=== PATIENT | male | born 1990 | race Caucasian/White ===

== ENCOUNTER 2020-03-11 18:27 | Emergency (ER) | payer OTHER, SELFPAY ==
[2020-03-11 18:35] VITALS: BP 122/79; PULSE 104; RESP 16; TEMP 36.1; O2SAT 98
--- NOTE | 2020-03-11 18:44 | ED.GENADULT ---
HPI - General Adult General Chief complaint: Nausea/Vomiting/Diarrhea Stated complaint: over heated Time Seen by Provider: 03/11/20 18:44 History of Present Illness HPI narrative: 29-year-old male patient was brought in by the family with chief complaints of very hot all day today. 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 He states that he got home around 3:00 a.m. and felt very weak and had muscle cramps. At 4:00 a.m. he started vomiting and being very nauseated. He has not been able to keep any food down. He denies any diarrhea. He denies any passing-out spells. He denies any chest pain or shortness of breath. He denies any sore throat or cough. He denies any exposures to illness or anyone with known COVID 19 problems. The patient is a smoker and uses marijuana occasionally. He denies any alcohol or recreational drugs. He states that he is in good health generally Related Data Home Medications Medication Instructions Recorded Confirmed No Home Medications 03/11/20 03/11/20 Allergies Allergy/AdvReac Type Severity Reaction Status Date / Time No Known Allergies Allergy Verified 03/11/20 18:47 Review of Systems Review of Systems: All systems reviewed & are unremarkable except as noted in HPI and below Constitutional: Constitutional: Reports no additional constitutional complaints, Denies chills, Reports fatigue, Denies fever(s) and Reports weakness Eyes: Eyes: Reports no additional eye complaints ENT: Denies sore throat Cardiovascular: Cardiovascular: Reports no additional cardiovascular complaints, Denies chest pain and Reports rapid heart rate Respiratory: Respiratory: Reports no additional respiratory complaints, Denies chest congestion, Denies cough, Denies dyspnea and Denies wheezing Gastrointestinal: Gastrointestinal: Denies abdominal pain, Denies diarrhea, Reports nausea and Reports vomiting Genitourinary: Genitourinary: Reports no additional male genitourinary complaints Musculoskeletal: Musculoskeletal: Reports as per HPI, Denies back pain, Denies myalgias, Denies arthralgias, Denies joint swelling and Reports muscle cramps Integumentary/Breasts: Skin/Breast: Reports system reviewed and no additional complaints, except as docu Neurologic: Reports system reviewed and no additional complaints, except as documented, Denies dizziness, Denies syncope, Denies headache(s), Denies focal weakness, Denies numbness and Reports weakness Psychiatric: Psychiatric: Reports no additional psychiatric complaints PMFSH Past Medical History Medical History (Updated 03/11/20 @ 21:52 by Giselle Contreras MD) No pertinent past medical history Surgical History Surgical History (Updated 03/11/20 @ 18:55 by Giselle Contreras MD) No pertinent past surgical history Social History Social History (Updated 03/11/20 @ 18:56 by Giselle Contreras MD) Smoking packs per day: 1 Smoking cigarettes per day: 20.0 Smoking status: Current every day smoker Substance use type: does not use Living arrangements: with family Exam Const: General: alert, diaphoretic and ill appearing Nutritional Appearance: thin Limitations: no limitations HENMT: Head: normal to inspection Mouth: Yes moist mucous membranes Throat: posterior oropharynx normal Eyes: Conjunctivae: conjunctivae normal Pupils: Equal, round and reactive pupils present EOM: EOMs intact bilaterally Chest: Chest palpation & inspection: normal inspection of the chest Resp: Effort & Inspection: normal respiratory effort Auscultation: clear to auscultation bilaterally Cardio: Rate: tachycardic Rhythm: regular rhythm Heart sounds: no murmurs GI: GI Palp: Yes Soft to palpation, No Tenderness to palpation present (GI), No Guarding due to palpation present (GI) and No Rigid due to palpation Skin: General skin exam: normal color Rashes: no rashes Neuro: General: patient oriented x3 Speech: normal speech
[2020-03-11] MEDS: ONDANSETRON INJ 4 MG/2 ML VIAL IV PUSH (19:00)
[2020-03-11 19:03] LABS: Hematocrit 52.5 % (40.0-54.0); Hemoglobin 18.8 g/dL (14.0-18.0); Mean Corpuscular HGB Conc 35.8 g/dL (32.0-36.0); Mean Corpuscular Hemoglobin 31.5 pg (27.0-31.0); Mean Corpuscular Volume 87.9 fL (78.0-102.0); Mean Platelet Volume 10.1 fl (8.7-11.0); Platelet Count Result 366 K/mm3 (150-420); Red Blood Count 5.97 M/mm3 (4.70-6.10); Red Cell Distribution Width 12.5 % (11.6-14.4)
[2020-03-11 19:07] LABS: White Blood Count 25.4 K/mm3 (4.8-10.8)
[2020-03-11 19:13] LABS: Anion Gap 24.3 mmol/L (7-16); Blood Urea Nitrogen 38 mg/dL (7-18); Calcium 11.9 mg/dL (8.5-10.1); Carbon Dioxide 25 mmol/L (21-32); Chloride 90 mmol/L (98-108); Estimated Glomerular Filt Rate 21; Glucose 169 mg/dL (70-99); Magnesium 2.9 mg/dL (1.8-2.4); Osmolality Calculated 293 mOsm/kg (285-295); Potassium 4.3 mmol/L (3.5-5.1); Sodium 135 mmol/L (136-145)
[2020-03-11] MEDS: SODIUM CHLORIDE 0.9% IV 1,000 ML 999 ML IV CONT ×2 (19:28→20:00)
[2020-03-11 19:36] LABS: Band Neutrophils Percent 0 % (0-6); Eosinophils Absolute Manual 0.25 K/mm3 (0.02-0.5); Eosinophils Percent Manual 1 % (1-6); Lymphocytes Percent Manual 13 % (18-44); Monocytes Absolute Manual 1.27 K/mm3 (0.1-0.90); Monocytes Percent Manual 5 % (3-9); Neutrophils Absolute Manual 20.57 K/mm3 (1.3-6.7); Neutrophils Percent Manual 81 % (46-73); Platelet Estimate Adequate (Adequate); Total Cells Counted 100
[2020-03-11 21:30] LABS: Anion Gap 15.1 mmol/L (7-16); Blood Urea Nitrogen 36 mg/dL (7-18); Calcium 8.5 mg/dL (8.5-10.1); Carbon Dioxide 24 mmol/L (21-32); Chloride 103 mmol/L (98-108); Estimated CRCL calculation 31 ml/min; Estimated Glomerular Filt Rate 29; Glucose 100 mg/dL (70-99); Osmolality Calculated 294 mOsm/kg (285-295); Potassium 4.1 mmol/L (3.5-5.1); Sodium 138 mmol/L (136-145)
[2020-03-11 21:30] LABS: Add Urine Microscopic? YES; Appearance Urine Clear (Clear); Bilirubin Urine Negative (Negative); Blood Urine 2+ (Negative); Color Urine Yellow (Yellow); Glucose Urine UA Negative (Negative); Ketones Urine 1+ (Negative); Leukocyte Esterase Ur Negative (Negative); Nitrate Urine Negative (Negative); Protein Urine 2+ (Negative); Specific Grav Ur 1.025 (1.010-1.020); Urobilinogen Urine 0.2 mg/dL (0.2-1.0); pH Urine 5.5 (5.0-8.0)
[2020-03-11 21:37] LABS: Squamous Epithelial Cell Urine Few /hpf (Few); WBC Urine 0-3 /hpf (0-3)
[2020-03-11 21:38] LABS: Bacteria Urine Trace /hpf; Calcium Oxalate Crystals Urine Present /hpf; Mucus Urine Moderate /lpf
== END 2020-03-11 22:16 | disposition home or self-care (01) ==
PROVIDERS: Emergency Provider Emergency Medicine
DX: T67.5XXA Heat exhaustion, unspecified, initial encounter (principal); E86.0 Dehydration; N28.9 Disorder of kidney and ureter, unspecified
CPT/HCPCS: 36415; 80048; 81001; 83735; 85025; 96361; 96374; 99282; 99284; J2405; J7030

== ENCOUNTER 2020-04-08 06:53 | Emergency (ER) | payer OTHER, SELFPAY ==
--- NOTE | ~2020-04-08 | CT_ITS ---
EXAMINATION: CT abdomen pelvis wo con DATE: 04/08/2020 09:22 INDICATION: Nausea and vomiting. Leukocytosis. Generalized abdominal pain. TECHNIQUE: Computed tomography (CT) of the abdomen and pelvis was performed without intravenous contr ast. Automated exposure control and iterative reconstruction technique were employed. The dose-length product was 173.97 mGy-cm. COMPARISON: None. FINDINGS: The visualized portions of the lung bases are clear without pneumonia or pleural effusion. The heart size is normal. No pericardial effusion. The liver, gallbladder, spleen, pancreas, adrenal glands, and kidneys are normal. There is no urolithiasis. There are no dilated loops of bowel. The ap pendix measures 8 mm in diameter and contains appendicoliths. There are no pathologically enlarged ly mph nodes. There is no free intraperitoneal fluid. There is levocurvature of lumbar spine. IMPRESSION: 1. Appendicoliths and appendiceal diameter of 8 mm, but no inflammation to suggest appendicitis. Vanessa elate with physical exam. Reviewed, dictated and finalized at location B. IMPRESSION: 1. Appendicoliths and appendiceal diameter of 8 mm, but no inflammation to sugg est appendicitis. Correlate with physical exam.
--- NOTE | ~2020-04-08 | XR_ITS ---
EXAMINATION: XR chest 1V portable DATE: 04/08/2020 08:24 INDICATION: Shortness of breath. Leukocytosis. TECHNIQUE: A single frontal view of the chest was obtained on 2 radiographs. COMPARISON: None. FINDINGS: A calcified left lung nodule is consistent with old granulomatous disease. No pleural effus ion or pneumothorax. The heart size is normal. IMPRESSION: 1. No acute cardiopulmonary disease. Reviewed, dictated and finalized at location B.
[2020-04-08 07:05] VITALS: BP 115/84; PULSE 110; RESP 20; TEMP 37.4; O2SAT 98
[2020-04-08] MEDS: ONDANSETRON INJ 4 MG/2 ML VIAL IV PUSH (07:19)
[2020-04-08] MEDS: SODIUM CHLORIDE 0.9% IV 1,000 ML 999 ML IV CONT (07:19)
[2020-04-08] MEDS: SODIUM CHLORIDE 0.9% IV 2,000 ML 999 ML IV CONT (07:51)
--- NOTE | 2020-04-08 08:06 | ED.NAVMDI ---
HPI - Nausea/Vomiting/Diarrhea General Chief complaint: Nausea/Vomiting/Diarrhea Stated complaint: overheated yesterday Time Seen by Provider: 04/08/20 07:06 Source: patient Mode of arrival: ambulatory Limitations: no limitations History of Present Illness HPI Narrative: Pt presents to ED with complaints of vomiting and nausea. He states this started around noon yesterday, when he was working outside. He thinks he got overheated. He did this similar thing a few weeks ago. He came here and got rehydrated, but he states that he never got fully better. MD elicited complaint: nausea and vomiting Description of vomiting: bilious Description of diarrhea: watery Associated nausea: Yes Associated abdominal pain: No Exacerbating factors: none Relieving factors: other (marijuana) Associated symptoms: denies other symptoms (sore throat) Related Data Home Medications Medication Instructions Recorded Confirmed No Home Medications 03/11/20 04/08/20 Allergies Allergy/AdvReac Type Severity Reaction Status Date / Time No Known Allergies Allergy Verified 03/11/20 18:47 Review of Systems Review of Systems: All systems reviewed & are unremarkable except as noted in HPI and below Constitutional: Constitutional: Reports no additional constitutional complaints Eyes: Eyes: Reports no additional eye complaints ENT: Reports sore throat Cardiovascular: Cardiovascular: Reports no additional cardiovascular complaints Gastrointestinal: Gastrointestinal: Reports nausea and Reports vomiting Musculoskeletal: Musculoskeletal: Reports no additional musculoskeletal complaints Neurologic: Reports system reviewed and no additional complaints, except as documented Psychiatric: Psychiatric: Reports no additional psychiatric complaints Endocrine: Endocrine: Reports no additional endocrine complaints Hematologic/Lymphatic: Hematologic/Lymphatic: Reports no additional hematologic/lymphatic complaints Allergic/Immunologic: Allergic/Immunologic: Reports no additional allergic/immunologic complaints [facility] Past Medical History Medical History No pertinent past medical history Surgical History Surgical History No pertinent past surgical history Social History Social History (Updated 04/08/20 @ 08:35 by Saira Pryor MD) Smoking packs per day: 1 Smoking cigarettes per day: 20.0 Smoking status: Current every day smoker Substance use type: marijuana Other substance usage details: daily use Exam Const: General: no acute distress and alert Nutritional Appearance: thin Orientation/consciousness: patient oriented x3 HENMT: Head: normal to inspection Eyes: Pupils: Equal, round and reactive pupils present EOM: EOMs intact bilaterally Neck: Neck: normal visual inspection Chest: Chest palpation & inspection: normal inspection of the chest Resp: Effort & Inspection: normal respiratory effort Cardio: Rate: regular rate GI: GI Palp: Yes Soft to palpation, No Tenderness to palpation present (GI), No Guarding due to palpation present (GI) and No Rigid due to palpation Auscultation: normal bowel sounds : Testes: Testes normal Back/Spine/Pelvis: Back: no CVA tenderness Skin: General skin exam: normal color Neuro: General: patient oriented x3 Extrem: General: normal to inspection Psych: Appearance: grossly normal Mental Status: mental status grossly normal Thought content: Yes Normal thought content present Course Course Emergency Course: pt had elevated wbc count, and rf. It is worse and vomiting has been severe. Vital Signs Vital signs: Vital Signs Temperature 37.4 C 04/08/20 07:05 Pulse Rate 110 H 04/08/20 07:05 Respiratory Rate 20 04/08/20 07:05 Blood Pressure 115/84 04/08/20 07:05 Pulse Oximetry 98 04/08/20 07:05 Temperature 37.4 C 04/08/20 07:05 P
[2020-04-08 08:08] LABS: Hematocrit 47.5 % (40.0-54.0); Hemoglobin 16.8 g/dL (14.0-18.0); Mean Corpuscular HGB Conc 35.4 g/dL (32.0-36.0); Mean Corpuscular Hemoglobin 30.8 pg (27.0-31.0); Mean Corpuscular Volume 87.2 fL (78.0-102.0); Mean Platelet Volume 10.3 fl (8.7-11.0); Platelet Count Result 366 K/mm3 (150-420); Red Blood Count 5.45 M/mm3 (4.70-6.10); Red Cell Distribution Width 12.5 % (11.6-14.4); White Blood Count 26.7 K/mm3 (4.8-10.8)
[2020-04-08 08:11] LABS: Alanine Aminotransferase 68 U/L (16-63); Albumin Level 5.5 g/dL (3.4-5.0); Alkaline Phosphatase 99 U/L (46-116); Anion Gap 19 mmol/L (8-16); Aspartate Amino Transferase 44 U/L (15-37); Bilirubin,Total 0.9 mg/dL (0.00-1.00); Blood Urea Nitrogen 56 mg/dL (7-18); Calcium 9.1 mg/dL (8.5-10.1); Carbon Dioxide 24 mmol/L (21-32); Chloride 94 mmol/L (98-108); Estimated CRCL calculation 19 ml/min; Estimated Glomerular Filt Rate 16; Glucose 209 mg/dL (70-99); Osmolality Calculated 305 mOsm/kg (285-295); Potassium 4.1 mmol/L (3.5-5.1); Sodium 137 mmol/L (136-145); Total Protein 9.3 g/dL (6.4-8.2)
[2020-04-08 08:20] LABS: Band Neutrophils Percent 0 % (0-6); Basophils Percent Manual 0 % (0-1); Eosinophils Percent Manual 0 % (1-6); Lymphocytes Absolute Manual 1.86 K/mm3 (1.1-4.5); Lymphocytes Percent Manual 7 % (18-44); Monocytes Percent Manual 6 % (3-9); Neutrophils Absolute Manual 23.22 K/mm3 (1.3-6.7); Neutrophils Percent Manual 87 % (46-73); Total Cells Counted 100
[2020-04-08 08:21] LABS: Platelet Estimate Adequate (Adequate)
[2020-04-08 08:45] LABS: Lactic Acid 3.3 mmol/L (0.4-2.0)
[2020-04-08 08:50] LABS: Add Urine Microscopic? YES; Bilirubin Urine 1+ (Negative); Blood Urine 2+ (Negative); Color Urine Yellow (Yellow); Glucose Urine UA Negative (Negative); Ketones Urine 1+ (Negative); Leukocyte Esterase Ur Negative LEU/UL (Negative); Nitrate Urine Negative (Negative); Protein Urine 2+ (Negative); Specific Grav Ur >= 1.030 (1.010-1.020); Urobilinogen Urine 0.2 mg/dL (0.2-1.0)
[2020-04-08 08:55] LABS: Appearance Urine Sl Cloudy (Clear); Squamous Epithelial Cell Urine Few /hpf (Few); WBC Urine 0-3 /hpf (0-3)
[2020-04-08 08:56] LABS: Amorphous Sediment Urine Moderate; Bacteria Urine 1+ /hpf
[2020-04-08 08:59] LABS: Amphetamine Screen Urine Negative (Negative); Barbiturate Screen Urine Negative (Negative); Benzodiazepines Screen Urine Negative (Negative); Cannabinoid Screen Urine Positive (Negative); Cocaine Screen Urine Negative (Negative); Methadone Screen Urine Negative (Negative); Opiate Screen Urine Negative (Negative); Phencyclidine Screen Urine Negative (Negative)
[2020-04-08] MEDS: NICOTINE (*PBKC) 21 MG PATCH 1 PATCH (09:01)
[2020-04-08 09:26] LABS: Creatine Kinase 256 U/L (39-308)
[2020-04-08 12:04] VITALS: BP 138/77; PULSE 75; RESP 20; O2SAT 98
[2020-04-08] MEDS: SODIUM CHLORIDE 0.9% IV 1,000 ML 150 ML IV CONT (12:19)
--- NOTE | 2020-04-08 12:24 | PC.NURSE ---
Paperwork signed for transfer, [facility] paged for transfer.
[2020-04-09 14:54] LABS: SARS-CoV-2 RNA PCR Negative
== END 2020-04-08 12:41 | disposition short-term general hospital (02) ==
PROVIDERS: Emergency Provider Emergency Medicine
DX: E86.0 Dehydration (principal); N17.9 Acute kidney failure, unspecified; R11.14 Bilious vomiting
CPT/HCPCS: 36415; 71045; 74176; 80053; 80307; 81001; 82550; 83605; 85025; 87635; 96361; 96374; 96375; 99284; 99285; A9270; C9803; J0696; J2405; J7030; U0003

== ENCOUNTER 2020-04-08 13:25 | Inpatient (IN) | payer OTHER, SELFPAY ==
[2020-04-08] VITALS: PULSE 62
[2020-04-08 13:25] VITALS: BP 145/80; PULSE 96; RESP 16; TEMP 36.7; O2SAT 99
[2020-04-08 14:06] VITALS: BMI 20.2
[2020-04-08 14:49] LABS: Anion Gap 11 mmol/L (8-16); Blood Urea Nitrogen 38 mg/dL (9-20); Calcium 8.2 mg/dL (8.4-10.2); Carbon Dioxide 25 mmol/L (22-30); Chloride 102 mmol/L (98-107); Creatine Kinase 284 U/L (55-170); Estimated Glomerular Filt Rate 42; Glucose 106 mg/dL (75-110); Lactic Acid 0.9 mmol/L (0.7-2.1); Magnesium 2.2 mg/dL (1.6-2.3); Phosphorus 4.5 mg/dL (2.5-4.5); Potassium 4.3 mmol/L (3.4-5.0); Sodium 138 mmol/L (137-145)
[2020-04-08 15:08] LABS: Erythrocyte Sedimentation Rate 10 mm/hr (0-20)
--- NOTE | 2020-04-08 15:44 | ADMGEN ---
This patient, Erwin Mayen, was admitted to [facility] Surg Room 330-01. Patient/family oriented to hospital policies and general routines including ID bracelet, bed and alarms, visiting hours, pain management, procedures, bathroom and other care routines, personal items, smoking policy, room service/diet, and visiting hours. Valuables list has been completed. Information on how to activate the Rapid Response Team has been discussed. Patient/Family are encouraged to report perceived risks to care and to ask questions if they do not understand what they are told or what they should do.
[2020-04-08 15:47] LABS: Thyroid Stimulating Hormone Reflex 0.371 uIU/mL (0.465-4.68)
[2020-04-08 15:48] LABS: Hepatitis B Surface Antigen Negative (Negative)
[2020-04-08 15:53] LABS: HAV RESULT Negative (Negative); Hepatitis B Core IgM Result Negative (Negative)
[2020-04-08 16:05] LABS: Hepatitis C Virus Antibody Negative (Negative)
[2020-04-08 16:19] LABS: Free T4 Free Thyroxine Reflex 1.56 ng/dL (0.78-2.19)
[2020-04-08] MEDS: SODIUM CHLORIDE 0.9% IV 1,000 ML 100 ML IV CONT (17:00)
[2020-04-08 17:10] LABS: Total Triiodothyronine (T3) 1.32 NG/ML (0.97-1.69)
[2020-04-08 18:04] VITALS: BP 134/68; PULSE 83; RESP 16; TEMP 37.2; O2SAT 100
[2020-04-08 20:00] VITALS: BP 135/73; PULSE 78; PULSE 82; RESP 16; TEMP 36.9; O2SAT 97
--- NOTE | 2020-04-08 20:00 | PM.IMHP ---
H&P: HPI History of Present Illness Date/Time: 04/08/20 20:00 Chief complaint: Acute kidney injury. Narrative: Erwin Mayen is a 29-year-old male who is being directly admitted to the hospitalist service from the emergency department at [facility] for further treatment and evaluation of an acute kidney injury. 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 In fact he was seen in the emergency department several weeks ago with the same complaints, and he was found to have an acute kidney injury presumably due to dehydration. He received 3 bags of IV fluids and repeat BMP showed improving creatinine and he was discharged home as he was tolerating p.o.. Unfortunately he is once again working out in the heat and despite his best attempts to stay hydrated it sounds as though he is not keeping up with insensible losses. Once again he was found to be in acute kidney failure with a creatinine of 4.24, is also noted that his white blood cell count was 26.7. He was transferred to [facility] for consult with Nephrology, however with IV fluids his creatinine has markedly improved and was 1.90 shortly after arrival to our facility. It is noted that he was swabbed for COVID-19 at the outside facility as the patient reported a sore throat, but he tells me that his throat is sore because he has been vomiting so much. He denies fever, chills, headache, sinus congestion, rhinorrhea, otalgia, odynophagia, anosmia, dysgeusia, chest pain, palpitations, shortness of breath, abdominal pain, hematemesis, melena, and hematochezia. He has not had nausea or vomiting for at least several hours before my arrival to the room. It is noted that his urine drug screen is positive for cannabis and with further questioning he does admit to smoking it about 1 joint a day and it seems to help with my nausea. With further questioning, he denies frequent nausea and vomiting, and blames his last 2 ER visits on heat exhaustion. On occasion he will take Aleve or ibuprofen for back pain, but certainly not daily. Of note, he was hospitalized at [facility] several years ago with kidney failure but he is uncertain if that was heat related or not. Review of Systems Review of Systems: Narrative: Twelve systems were reviewed with pertinent positives and negatives as per HPI. Yesterday he was sweating profusely with decreased urine output and dark colored urine. No hematuria or dysuria. Except as documented, all other systems were reviewed and are negative. COUNTS INCLUDE 234 BEDS AT THE [facility] Past Medical History Medical History (Updated 04/09/20 @ 02:13 by Tete Aguilar PA-C) Acute kidney injury Hospitalized at [facility] for such in 2017. He was also seen in the emergency department at an outside facility with such on 03/11/2020, due to dehydration. Cannabis abuse, daily use Tobacco dependence Surgical History Surgical History No pertinent past surgical history Family History Family History (Updated 04/09/20 @ 02:07 by Tete Aguilar PA-C) Other No significant family history Social History Social History (Updated 04/09/20 @ 02:08 by Tete Aguilar PA-C) Social History: Surrogate decision maker: He designates his parents as his surrogate decision makers. Code status: Full code. Smoking packs per day: 1 Smoking cigarettes per day: 20.0 Years smoked: 10 Smoking pack-years: 10.00 Smoking status: Current every day smoker Tobacco type: cigarettes Second hand tobacco smoke exposure: Yes Alcohol intake: current Alcohol use details: Reports social alcohol consumption, in moderation. Substance use: current Substance use type: marijuana Other substance usage details: daily use Additional living arrangements comments: Re
[2020-04-08] MEDS: ONDANSETRON INJ 4 MG/2 ML VIAL IV PUSH (21:44)
[2020-04-09] VITALS (8 sets, daily range): BP systolic 116–144; BP diastolic 64–91; PULSE 57–76; RESP 16–20; TEMP 36.7–37; O2SAT 98–100
[2020-04-09 00:19] LABS: Creatinine Urine 147.7 mg/dL
[2020-04-09 00:20] LABS: Potassium Urine Random 22.5 meq/L
[2020-04-09 00:51] LABS: Sodium Urine Random 79 meq/L
[2020-04-09] MEDS: BENZOCAINE/MENTHOL (*BKC) 18 EA LOZENGE 1 LOZENGE PO ×2 (03:06→12:18)
[2020-04-09] MEDS: SODIUM CHLORIDE 0.9% IV 1,000 ML 75 ML IV CONT ×2 (03:07→18:15)
[2020-04-09 06:20] LABS: Basophils Percent Auto 0.3 % (0.2-1.2); Eosinophils Absolute Auto 0.1 K/mm3 (0-0.3); Eosinophils Percent Auto 0.4 % (0-4.4); Hematocrit 36.7 % (42.0-52.0); Hemoglobin 12.8 g/dL (14.0-18.0); Immature Granulocyte Absolute 0.06 K/mm3 (0.00-0.031); Immature Granulocyte Percent A 0.4 % (0-0.5); Lymphocytes Absolute Auto 2.35 K/mm3 (0.9-3.2); Lymphocytes Percent Auto 16.5 % (18.3-44.2); Mean Corpuscular HGB Conc 34.9 g/dl (32-36); Mean Corpuscular Hemoglobin 31.4 pg (26-34); Mean Platelet Volume 10.4 fl (7.4-10.4); Monocytes Absolute Auto 1.4 K/mm3 (0.1-0.6); Monocytes Percent Auto 9.9 % (2.6-8.5); Neutrophils Absolute Auto 10.3 K/mm3 (1.3-6.7); Neutrophils Percent Auto 72.5 % (45.5-73.1); Platelet Count Result 201 k/mm3 (150-375); Red Blood Count 4.08 M/mm3 (4.6-6.20); Red Cell Distribution Width 13.2 % (11.5-14.5); White Blood Count 14.2 K/mm3 (4.5-10.0)
[2020-04-09 06:39] LABS: Alanine Aminotransferase 44 U/L (4-50); Albumin Level 3.9 g/dL (3.5-5.1); Alkaline Phosphatase 62 U/L (38-126); Anion Gap 4 mmol/L (8-16); Aspartate Amino Transferase 43 U/L (17-59); Bilirubin,Total 0.9 mg/dL (0.2-1.3); Blood Urea Nitrogen 21 mg/dL (9-20); Calcium 8.3 mg/dL (8.4-10.2); Carbon Dioxide 24 mmol/L (22-30); Chloride 109 mmol/L (98-107); Creatine Kinase 354 U/L (55-170); Estimated CRCL calculation 85 ml/min; Estimated Glomerular Filt Rate > 60; Glucose 89 mg/dL (75-110); Magnesium 2.3 mg/dL (1.6-2.3); Phosphorus 1.9 mg/dL (2.5-4.5); Potassium 4.8 mmol/L (3.4-5.0); Sodium 137 mmol/L (137-145)
[2020-04-09] MEDS: NICOTINE (*PBKC) 7 MG PATCH 1 PATCH TRANSDERM (08:30)
--- NOTE | 2020-04-09 17:44 | PM.IMPN ---
Progress Note: A&P Assessment and Plan (1) Acute kidney injury: Code(s): N17.9 - Acute kidney failure, unspecified Status: Acute Assessment and Plan: Presumably due to profound dehydration from heat exhaustion as Cr has significantly improved to 0.90 today with IVF. Nephrology initially consulted from [facility] but will likely have patient follow up as an outpatient. Continue IV fluid rehydration repeat renal function in a.m. We discussed avoiding NSAIDs. (2) Dehydration: Code(s): E86.0 - Dehydration Status: Acute Assessment and Plan: This appears to have improved Continue IV fluid rehydration. (3) Leukocytosis: Code(s): D72.829 - Elevated white blood cell count, unspecified Status: Acute Assessment and Plan: Suspected leukemoid reaction as he gives no history to suggest underlying infection (CRP is 1.0) or malignancy. WBC 14.2k today; improved Monitor tomorrow (4) Person under investigation for COVID-19: Code(s): Z20.828 - Contact with and (suspected) exposure to other viral communicable diseases Status: Acute Assessment and Plan: It appears he was swabbed for COVID-19 due to complaints of sore throat, which is more likely due to vomiting. His testing is negative. COVID felt to be less likely He may be taken off isolation precautions (5) Tobacco dependence: Code(s): F17.200 - Nicotine dependence, unspecified, uncomplicated Status: Acute Assessment and Plan: Requests nicotine patch. Discussed >4 minutes about smoking cessation PRN nicotine patch for cravings (6) Cannabis abuse, daily use: Code(s): F12.10 - Cannabis abuse, uncomplicated Status: Acute Assessment and Plan: Consider cannabinoid hyperemesis, however his nausea / vomiting is probably due to heat exhaustion. Discussed cessation during visit as well Subjective Date/time seen: 04/09/20 17:44 Interval history: Patient is a 29 yo M with history of previous TONY presumably secondary to dehydration, cannabis abuse, and tobacco dependence who is here as a direct transfer from [facility] for TONY presumably from dehydration. Patient states he feels better today; somewhat nauseous but no vomiting today. He had some abdominal wall cramping when vomiting yesterday. He also notes a sore throat he thinks is from vomiting so much prior to arrival. His sore throat has improved. He notes a cough with some phlegm, but otherwise no other complaints. Tolerating his diet thus far. Denies subjective f/c/s, headaches, dizziness, lightheadedness, cp/palpitations, sob, current n/v/d/c, abd pain, changes in BMs, dysuria, hematuria, dark urine cloudy urine, calf pain/swelling. Review of Systems Review of Systems: All systems reviewed & are unremarkable except as noted in HPI and below Exam Narrative: Exam Narrative: General: Patient resting supine in bed in no acute distress. Nursing in room talking with patient partially during visit HEENT: Normocephalic, EOMI, dry oral mucosa Cardiovascular: Rate and rhythm are regular. No notable murmur, rub, or gallop. Respiratory: Faint MARGO field exp wheeze. Non-labored breathing. Abdomen: Soft, non-tender, non-distended, bowel sounds present. Extremities: Peripheral pulses intact. No edema. Neuro: No focal neurological deficits. Speech is clear. Objective Data Vital Signs Vital Signs: Last Vital Signs Temp 98.3 F 04/09/20 16:00 Pulse 70 04/09/20 16:00 Resp 20 04/09/20 16:00 BP 144/91 H 04/09/20 16:00 Pulse Ox 100 04/09/20 16:00 Intake/Output Int
--- NOTE | 2020-04-09 18:12 | PC.NURSE ---
late entry for 04/08/20. upon the arrival of the pt at roughly 1400. Pt was alert and oriented. Pt was assessed for pain/nausea/vomiting. Assested for bowel sounds, and abdomen tenderness. Pt was negative for pain, nausea and vomiting. Bowel sounds were active and no tenderness was expressed. Pt asked for some food he stated [place]He said the last time he vomited was earlier in the moring before he went to [facility]. He recived zofran 4mg at [facility] 630 am Info from report from [place] at [facility].After the charge nurse recived a diet order from Christel Diehl.Diet order was Renal dialysis diet. I called downstairs for a tray. Was brought up and the [employer] [place] took it to the pt.About a half an hour later approx 1645 pt called the nurses station and i was notified the pt was saying he was having nausea. I tried to contact Christel Diehl on two diffrent number. The the directory and the one on the daily hospitali's list. I attempted a few time over a half an hour . I went and checked on the pt to assess him. He said his nausea had lessend at that point. He said that he may have just ate too much too fast. I advised him to not eat anymore and I was waiting to hear back from hospitalist. This was 1715. I attempted 2 more times to notify the hospitilist [facility] and was unable to get an answer. I notified the charge nurse Marry that I was unable to get ahold of the hospitalis and told her the issue by this time it was 1800. I reassessed the pt and he said he didnt have an nausea at this time ,but his stomach wasnt feeling right 1815. By time of shift change I still hadnt been able to get an answer. The patient at this time wasnt complianing about nausea. I relayed the information to the night nurse for this pt Patty/RN during my report.
[2020-04-09] MEDS: ONDANSETRON INJ 4 MG/2 ML VIAL IV PUSH (18:15)
[2020-04-09] MEDS: NICOTINE (*PBKC) 14 MG PATCH 1 PATCH TRANSDERM (20:32)
[2020-04-09] MEDS: SUCRALFATE 1 GM TABLET PO (20:33)
[2020-04-10 00:10] VITALS: PULSE 58
[2020-04-10 04:00] VITALS: PULSE 62
[2020-04-10] MEDS: SODIUM CHLORIDE 0.9% IV 1,000 ML 75 ML IV CONT (05:40)
[2020-04-10] MEDS: SUCRALFATE 1 GM TABLET PO ×2 (05:42→11:28)
[2020-04-10 06:00] VITALS: BP 130/86; PULSE 62; RESP 20; TEMP 36.6; O2SAT 100
[2020-04-10 06:16] LABS: Basophils Absolute Auto 0.1 K/mm3 (0.0-0.1); Basophils Percent Auto 0.8 % (0.2-1.2); Eosinophils Absolute Auto 0.1 K/mm3 (0-0.3); Eosinophils Percent Auto 1.8 % (0-4.4); Hematocrit 36.5 % (42.0-52.0); Hemoglobin 12.6 g/dL (14.0-18.0); Immature Granulocyte Absolute 0.02 K/mm3 (0.00-0.031); Immature Granulocyte Percent A 0.3 % (0-0.5); Lymphocytes Absolute Auto 2.34 K/mm3 (0.9-3.2); Lymphocytes Percent Auto 31.8 % (18.3-44.2); Mean Corpuscular HGB Conc 34.5 g/dl (32-36); Mean Corpuscular Hemoglobin 31.6 pg (26-34); Mean Corpuscular Volume 91.5 fl (80-100); Mean Platelet Volume 10.9 fl (7.4-10.4); Monocytes Absolute Auto 0.9 K/mm3 (0.1-0.6); Monocytes Percent Auto 11.7 % (2.6-8.5); Neutrophils Absolute Auto 3.9 K/mm3 (1.3-6.7); Neutrophils Percent Auto 53.6 % (45.5-73.1); Platelet Count Result 180 k/mm3 (150-375); Red Blood Count 3.99 M/mm3 (4.6-6.20); Red Cell Distribution Width 12.7 % (11.5-14.5); White Blood Count 7.4 K/mm3 (4.5-10.0)
[2020-04-10 06:27] LABS: Alanine Aminotransferase 42 U/L (4-50); Albumin Level 3.9 g/dL (3.5-5.1); Alkaline Phosphatase 63 U/L (38-126); Anion Gap 5 mmol/L (8-16); Aspartate Amino Transferase 38 U/L (17-59); Blood Urea Nitrogen 16 mg/dL (9-20); Calcium 8.5 mg/dL (8.4-10.2); Carbon Dioxide 24 mmol/L (22-30); Chloride 106 mmol/L (98-107); Creatine Kinase 202 U/L (55-170); Estimated CRCL calculation 95 ml/min; Estimated Glomerular Filt Rate > 60; Glucose 87 mg/dL (75-110); Phosphorus 1.7 mg/dL (2.5-4.5); Potassium 4.4 mmol/L (3.4-5.0); Sodium 135 mmol/L (137-145)
[2020-04-10 08:00] VITALS: PULSE 58
[2020-04-10] MEDS: NICOTINE (*PBKC) 14 MG PATCH 1 PATCH TRANSDERM (08:25)
--- NOTE | 2020-04-10 09:06 | PM.DS ---
DS: Admitting Diagnosis Admitting Diagnosis Admitting Diagnosis: Acute kidney injury DS: Discharge Diagnosis Discharge Diagnosis (1) Acute kidney injury: Code(s): N17.9 - Acute kidney failure, unspecified Status: Acute Assessment and Plan: Presumably due to profound dehydration from heat exhaustion as Cr has significantly improved to 0.80 today with IVF. Nephrology initially consulted from [facility] but will likely have patient follow up PCP as outpatient BMP in 1 week for further monitoring Discussed avoiding NSAIDs. (2) Dehydration: Code(s): E86.0 - Dehydration Status: Acute Assessment and Plan: This appears to have improved Discussed importance of staying hydrated at work (3) Leukocytosis: Code(s): D72.829 - Elevated white blood cell count, unspecified Status: Acute Assessment and Plan: Suspected leukemoid reaction as he gives no history to suggest underlying infection (CRP is 1.0) or malignancy. WBC 7.4k today; resolved (4) Person under investigation for COVID-19: Code(s): Z20.828 - Contact with and (suspected) exposure to other viral communicable diseases Status: Ruled-out Assessment and Plan: It appears he was swabbed for COVID-19 due to complaints of sore throat, which is more likely due to vomiting. His testing is negative. COVID felt to be less likely He may be taken off isolation precautions (5) Tobacco dependence: Code(s): F17.200 - Nicotine dependence, unspecified, uncomplicated Status: Acute Assessment and Plan: Requests nicotine patch. Discussed >4 minutes about smoking cessation PRN nicotine patch for cravings during stay (6) Cannabis abuse, daily use: Code(s): F12.10 - Cannabis abuse, uncomplicated Status: Acute Assessment and Plan: Consider cannabinoid hyperemesis, however his nausea / vomiting is probably due to heat exhaustion. Discussed cessation during visit as well DS: Summary Hospital Course Reason for hospitalization: TONY; severe dehydration Hospital Course: Patient is a 29 yo M with history of previous episodes of heat exhaustion/severe dehydration and subsequent TONY who was directly admitted to the hospitalist service at [facility] from the emergency department at [facility] on for further treatment and evaluation of an acute kidney injury found at that hospital after he presented there on morning of 04/08 with complaints of nausea and vomiting since the previous afternoon, 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 While in the ED at [place], Cr was found to be 4.24 and WBC was 26.7k. ED felt patient may need dialysis given kidney function and Nephrology was consulted from there and was transferred under this setting. Please see H&P for further details. Presenting VS: BP 145/80, HR 62, RR 16, temp 98.1, sat 99% RA Presenting Pertinent labs at [facility] ED: WBC 26.7k, Cr 4.24, BUN 56, Lactic acid 3.3 (normalized with IVF). UA showed cloudy, 2+ protein, 1+ ketones, 2+ blood, 1+ bili, 6-10 RBC, moderate amorphous sediment, 1+ bacteria, 10-14 hyaline casts. Tox screen positive for cannabinoids, Hepatitis panel negative, COVID testing negative. CBC, chem, UA, tox screen, otherwise unremarkable Micro: BCx NGTD x 2 after 4 days Imaging at [facility]: CXR 04/08 IMPRESSION: 1. No acute cardiopulmonary disease. Abd/pelvis CT 04/08 IMPRESSION: 1. Appendicoliths and appendiceal diameter of 8 mm, but no inflammation to suggest appendicitis. Correlate with physical exam. ECG: none On arrival to [facility]
[2020-04-10 12:00] VITALS: PULSE 64
== END 2020-04-10 12:25 | disposition home or self-care (01) | DRG 469 ==
PROVIDERS: Physician Assistant; Admitting Provider Family Medicine; Visit Provider Physician Assistant
DX: N17.9 Acute kidney failure, unspecified (principal); E86.0 Dehydration; D72.829 Elevated white blood cell count, unspecified; Z20.828 Contact with and (suspected) exposure to other viral communicable diseases; J02.9 Acute pharyngitis, unspecified; F12.10 Cannabis abuse, uncomplicated; F17.200 Nicotine dependence, unspecified, uncomplicated
CPT/HCPCS: 36415; 80048; 80053; 80074; 82550; 82570; 83605; 83735; 84100; 84133; 84300; 84439; 84443; 84480; 85025; 85652; 85999; 86038; 86140; 87040; A9270; J2405; J7030

== ENCOUNTER 2022-08-24 13:58 | Emergency (ER) | payer SELFPAY ==
--- NOTE | ~2022-08-24 | XR_ITS ---
EXAM: XR shoulder RT min 2V DATE: 08/24/2022 16:02 HISTORY: Post reduction . COMPARISON: X-ray shoulder, same date at 2:29 PM. FINDINGS/IMPRESSION: Alignment is improved. The humeral head appears to remain slightly posteriorly a nd superiorly displaced, with respect to the glenoid fossa. Clinical result of the reduction was posi tive with return of range of motion, these findings likely represent laxity of the cuff and capsule. KER DUMP GROUNDS Reviewed, dictated and finalized at location K. Results discussed with Dr. Lorenzana by Dr. Rich at 4:15 PM on 08/24/2022.
--- NOTE | ~2022-08-24 | XR_ITS ---
EXAMINATION: XR shoulder RT min 2V INDICATION: Right shoulder pain TECHNIQUE: Three views of the right shoulder are submitted. COMPARISON: 04/08/2020 FINDINGS: There is posterior dislocation of the humeral head with respect to the glenoid. There is rojas spicion of a reverse Hill-Sachs fracture. The acromioclavicular joint is normal. Soft tissues are unr emarkable. IMPRESSION: 1. Posterior dislocation of the humeral head with probable reverse Hill-Sachs fracture. Reviewed, dictated and finalized at location B. SWAMPER IMPRESSION: 1. Posterior dislocation of the humeral head with probable reverse Hill-Sachs f racture.
[2022-08-24 14:09] VITALS: BP 131/84; PULSE 69; RESP 20; TEMP 36.8; O2SAT 100
--- NOTE | 2022-08-24 14:09 | ED.GENADULT ---
HPI - General Adult General Chief complaint: Extremity Injury, Upper Stated complaint: R shoulder dislocation? Time Seen by Provider: 08/24/22 14:08 Source: patient and RN notes reviewed Limitations: no limitations History of Present Illness HPI narrative: 31 years old white male came with severe pain and deformity of the right shoulder while doing some work on the roof. He denies other injuries. Denies any history of dislocation. He denied tingling, numbness or cold feeling of the upper extremity. Related Data Home Medications Medication Instructions Recorded Confirmed No Home Medications 03/11/20 04/08/20 Allergies Allergy/AdvReac Type Severity Reaction Status Date / Time No Known Allergies Allergy Verified 08/24/22 14:15 Review of Systems Review of Systems: All systems reviewed & are unremarkable except as noted in HPI and below PMFSH Past Medical History Medical History Acute kidney injury Hospitalized at [place] for such in 2017. He was also seen in the emergency department at an outside facility with such on 03/11/2020, due to dehydration. Cannabis abuse, daily use Tobacco dependence Surgical History Surgical History No pertinent past surgical history Family History Family History Other No significant family history Social History Social History Social History: Surrogate decision maker: He designates his parents as his surrogate decision makers. Code status: Full code. Smoking packs per day: 1 Smoking cigarettes per day: 20.0 Years smoked: 10 Smoking pack-years: 10.00 Smoking status: Current every day smoker Tobacco type: cigarettes Second hand tobacco smoke exposure: Yes Alcohol intake: current Alcohol use details: Reports social alcohol consumption, in moderation. Substance use: current Substance use type: marijuana Other substance usage details: daily use Additional living arrangements comments: Resides with parents in [place]. Additional occupation/education comments: Lays concrete. Gender identity (if verbalized by the patient): Male Sexual Orientation (if Verbalized by the Patient): Straight or Heterosexual Spiritual care concerns: No Exam Narrative: General appearance: Well-developed, well-nourished Skin: Normal color Head: Normocephalic, nontraumatic Neck: Supple, nontender Chest and respiratory: Airway patent, no respiratory distress, no accessory muscle use Heart: Regular rate/rhythm Vascular: Normal peripheral pulses, normal capillary refill. Musculoskeletal: Right shoulder deformity, severe diffuse tenderness, severe limited range of motion, Neurologic: Alert and oriented ?3, NEONATAL PEDIATRIC NURSE is normal as tested, no gross motor deficit Procedures Orthopedic Joint Reduction Joint #1: Orthopedic Joint Reduction Date: 08/24/22 Orthopedic Joint Reduction Time: 16:36 Time Out Performed: Yes (10) Side: left Joint Reduction Location: shoulder Analgesia: none Pre-Procedure Neuro Vascular Exam: normal Local Anesthesia: none Shoulder Technique Used (if applicable): other (Abduction with internal rotation) Post-reduction neuro exam: intact Post-reduction vascular: intact Post Reduction X-Ray Results: reduced Splint Applied: Yes Patient Tolerated Procedure: well Medical Decision Making MDM Narrative Medical decision making narrative: Shoulder dislocation/fracture is my concer
[2022-08-24] MEDS: KETOROLAC 30 MG/ML VIAL (*BKC) IV PUSH (15:22)
[2022-08-24] MEDS: HYDROmorphone HCL INJ (*CRX) 1 MG/ML SYR 0.5 MG IV PUSH (15:23)
[2022-08-24] MEDS: diazePAM INJ (*CRX) 10 MG/2 ML SYRINGE 5 MG IV PUSH (15:23)
[2022-08-24 15:25] VITALS: BP 146/91; PULSE 75; RESP 18; O2SAT 99
[2022-08-24] MEDS: ONDANSETRON INJ 4 MG/2 ML VIAL IV PUSH (15:25)
[2022-08-24 16:33] VITALS: BP 129/65; PULSE 81; RESP 15; O2SAT 97
== END 2022-08-24 17:14 | disposition home or self-care (01) ==
PROVIDERS: Emergency Provider Emergency Medicine
DX: S43.024A Posterior dislocation of right humerus, initial encounter (principal); F17.210 Nicotine dependence, cigarettes, uncomplicated; X50.9XXA Other and unspecified overexertion or strenuous movements or postures, initial encounter
CPT/HCPCS: 23650; 73030; 96374; 96375; 99285; J1170; J1885; J2405; J3360